=== PATIENT | male | born 1990 ===

== ENCOUNTER 2022-01-15 11:57 | Observation (INO) ==
[2022-01-15] MEDS ORDERED: GADOBENATE DIMEGLUMINE 15 ML/VIAL IV ONE (11:58)
[2022-01-15] MEDS ORDERED: 0.9 % SODIUM CHLORIDE 1,000 ML IV ONE ×2 (12:19→21:35)
[2022-01-15] MEDS ORDERED: KETOROLAC 30 MG/ML VIAL IV ONE (12:23)
--- NOTE | 2022-01-15 12:43 | Emergency Department Note ---
HPI <Dionna Jeffers PA-C - Last Filed: 01/16/22 12:04> General Chief complaint: Back Pain/Injury Stated complaint: back pain Time Seen by Provider: 01/15/22 12:10 Source: patient Mode of arrival: ambulatory History of Present Illness HPI Narrative: 31-year-old male presents with 2 days of acute onset low back pain. He can recall no injury, no recent procedures. 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 He states that he started having a deep ache without paresthesias or radiculopathy several days ago in the low spine that radiates to both sides. He had associated chills and he endorses feeling ill, but no cough or sinus congestion, no abdominal pain, nausea or vomiting. He p resents with a temperature of 100.9 Fahrenheit today. He does snort methamphetamine, last use was a week ago. Denies IV drug use. Having some urinary hesitation and incomplete emptying, but no dysuria or hematuria. Having normal bowel movements, last one was this morning. No melena or hematochezia. He does note that his mother and maternal grandmother have a history of autoimmune disease, and he thinks it is rheumatoid arthritis. Wonders if he may have something similar. Related Data Previous Rx's Medication Instructions Recorded hydrocodone 5 mg-acetaminophen 325 1 tab PO Q6H PRN #20 tab 01/16/22 mg tablet ibuprofen 200 mg tablet 400 mg PO Q8H #30 tab 01/16/22 methocarbamol 750 mg tablet 750 mg PO Q8H PRN #20 tab 01/16/22 Allergies Allergy/AdvReac Type Severity Reaction Status Date / Time No Known Drug Allergies Allergy Unverified 01/15/22 11:59 Review of Systems <Dionna Jeffers PA-C - Last Filed: 01/16/22 12:04> ROS ROS Narrative: Narrative: All systems ED: reviewed and negative except as stated. PFSH <Dionna Jeffers PA-C - Last Filed: 01/16/22 12:04> Narrative Patient History Narrative: Narrative: Medical/Surgical/Family History All Active Problems (Updated 01/15/22 @ 21:12 by Dionna Jeffers PA-C) Acute lumbar back pain (Acute) Thoracic back pain (Acute) Social History Smoking Status: Never smoker Exam <Dionna Jeffers PA-C - Last Filed: 01/16/22 12:04> Narrative Narrative: General: AOx3, NAD, nontoxic appearing. Pleasant and conversant. HEENT: PERRL, EOMI, normocephalic. Moist mucous membranes. Normal facies. Neck: No meningismus. Cervical neck is nontender to palpation Chest: Symmetric Respiratory: Lungs clear to auscultation bilaterally. No respiratory distress. Unlabored breathing. Heart: Tachycardic rate and rhythm, no murmurs/clicks/rubs. Abdomen: Non-tender, Non distended, normal bowel tones. No organomegaly. Back: Midline tenderness extending from T10-S1, most significant at L4-L5. No fluctuance or evidence of abscess or cellulitis. No breaks in the skin. Extremities: Warm and well perfused. No edema. DP 2+ bilaterally. No venous stasis. Neuro: No focal deficits. Cranial nerves II-XII grossly normal. Moves all four s against gravity 5/5. Sensate throughout the bilateral upper and lower extremities. Skin: Warm dry, no rashes or lesions, no cyanosis. Psych: Normal mood and affect Heme/Lymph: No abnormal bruising Course <Dionna Jeffers PA-C - Last Filed: 01/16/22 12:04> Course Course Narrative: 31-year-old male presents with acute onset back pain, fever, tachycardia with no known injury. Reevaluation(s) Reevaluation #1: Obtain sepsis work-up Start IV fluids 30 mL/kg IV Toradol CT of the abdomen pelvis without contrast to query for kidney stones, spinal abscess Reevaluation #2: CT is negative for acute intra-abdominal pathology, negative for kidney stones, negative for spinal abscess CRP is elevated at 1.2, white blood cell count is 14,000, UA is negative Given patient's laboratory findings, ongoing tachycardia and pain I have ordered an MRI of the thoracic and lumbar spine to rule out spinal abscess, or other Reevaluation #3: MRI of the thoracic and lumbar spine is negative for spinal abscess, osteomy elitis, or discitis. It does show 30 x 2.5 cm syrinx in the mid thoracic cord extending from T5-T6 to mid T7. A smaller 20 x 2 mm syrinx is seen in the T4 level. No cause identified for syrinx. Additional Reevaluation(s): Lumbar puncture has been performed by Dr. Mayer. Please see his note for further details and plan of care. CSF studies are pending. He was noted to have 14 cc of clear CSF. Consultations Consultation #1: Neurosurgery, Dr. Shankar reviewed the images with me and feels that the syrinxes are unlikely to cause the patient's current symptoms. He agrees that lumbar puncture may be warranted given the patient's leukocytosis, presenting fever, and no clear source of infection. Vital Signs Vital signs: Vital Signs Temperature 38.3 C H 01/15/22 11:59 Pulse Rate 127 H 01/15/22 11:59 Respiratory Rate 18 01/15/22 11:59 Blood Pressure 132/85 01/15/22 11:59 Pulse Oximetry (%) 99 01/15/22 11:59 Temperature 36.9 C 01/16/22 19:25 Pulse Rate 99 H 01/16/22 19:25 Respiratory Rate 16 01/16/22 19:25 Blood Pressure 132/86 01/16/22 19:25 Pulse Oximetry (%) 100 01/16/22 19:25 [facility] <Dionna Jeffers PA-C - Last Filed: 01/16/22 12:04> [facility] Narrative Medical decision making narrative: Acute onset low back pain Leukocytosis Elevated CRP DDx: Discitis, spinal abscess, osteomyelitis, meningitis, musculoskeletal back strain, transverse myelitis, other Patient had a thorough work-up for spinal infection with a negative MRI of the thoracolumbar spine, negative CT of the abdomen pelvis without contrast, and negative UA. In addition, the patient had a lumbar puncture and CSF fluid analysis that was clear and showed only 1 RBC and 1 WBC and could not be run for fluid differential, and glucose and CSF protein were within normal limits making meningitis unlikely. Patient has blood cultures pending. I found no infectious reason for this patient's low back pain. I have given additional pain medications and he still remains tachycardic with low-grade temp of 100.7 and uncontrolled pain. I'm awaiting a call from the hospitalist to discuss possible admission observation for intractable pain and ongoing tachycardia and fever. I signed patient out to Dr. Joseluis Whalen at change of shift. Please see his note for further details and plan of care. Lab Data Result diagrams: 01/16/22 05:11 01/16/22 05:11 Labs: Lab Results 01/15/22 01/15/22 01/15/22 Range/Units 12:28 12:28 12:30 WBC 14.0 H (4.5-11.0) K/mcL RBC 5.14 (4.63-6.08) M/mcL Hgb 14.7 (13.7-17.5) g/dL Hct 43.9 (40.1-51.0) % POC Hct 44 (41-55) % MCV 85.4 (80.0-100.0) fL MCH 28.6 (26.0-34.0) pg MCHC 33.5 (31.0-36.0) g/dL RDW 12.6 (11.5-14.5) % Plt Count 273 (140-440) K/mcL MPV 9.0 (7.4-10.4) fL Seg Neutrophils % 76 (38-78) % Band Neutrophils % (0-10) % Lymphocytes % 13 L (15-49) % Monocytes % (Manual) 8 (1-12) % Eosinophils % (Manual) 1 (0-7) % Reactive Lymphocytes 2 (0-2) % Platelet Estimate Normal (Normal) RBC Morphology Normal (Normal) ESR 10 (0-15) mm/hr VBG Lactic Acid (0.5-2.0) mmol/L POC Sodium 137 (133-145) mEq/L POC Potassium 3.5 (3.3-5.1) mEql/L POC Chloride 96 (96-108) mEq/L POC Total CO2 28 (22-30) mmol/L POC BUN 10 (6-20) mg/dL POC Creatinine 0.7 (0.6-1.2) mg/dL POC Glucose 99 (70-105) mg/dL POC WB Ioniz Calcium 1.24 (1.16-1.32) mmEq/L C-Reactive Protein 1.20 H (0.03-0.80) mg/dL Procalcitonin 0.10 H (<0.10) ng/mL Urine Color Urine Appearance (Clear) Urine pH (5.0-9.0) Ur Specific [place] (1.000-1.035) Urine Protein (Negative) mg/dL Urine Glucose (UA) (Negative) mg/dL Urine Ketones (Negative) mg/dL Urine Occult Blood (Negative) mg/dL Urine Nitrate (Negative) Urine Bilirubin (Negative) mg/dL Urine Urobilinogen mg/dL Ur Leukocyte Esterase (Negative) /uL Ur Culture Indicated? CSF Source CSF Appearance CSF Color CSF RBC (0-1) /cumm CSF Diff Total Count CSF Total Nucleated Auto (0-5) /cumm CSF Neutrophils CSF Lymphocytes CSF Reactive Lymphs CSF Monocytes CSF Eosinophils % CSF Basophils CSF Plasma Cells CSF Diff Comment CSF Glucose (40-70) mg/dL CSF Total Protein (15.0-45.0) mg/dL Urine Opiates Screen Ur Opiates Confirm Ur Oxycodone Screen Urine Methadone Screen Ur Methadone Confirm Ur Barbiturates Screen Ur Barbiturate Confirm Ur Phencyclidine Scrn Urine PCP Confirm Ur Amphetamines Screen U Benzodiazepines Scrn Urine Cocaine Screen Urine Cocaine Confirm U Cannabinoids Confirm U Marijuana (THC) Screen 01/15/22 01/15/22 01/15/22 Range/Units 12:35 12:36 12:47 WBC (4.5-11.0) K/mcL RBC (4.63-6.08) M/mcL Hgb (13.7-17.5) g/dL Hct (40.1-51.0) % POC Hct (41-55) % MCV (80.0-100.0) fL MCH (26.0-34.0) pg MCHC (31.0-36.0) g/dL RDW (11.5-14.5) % Plt Count (140-440) K/mcL MPV (7.4-10.4) fL Seg Neutrophils % (38-78) % Band Neutrophils % (0-10) % Lymphocytes % (15-49) % Monocytes % (Manual) (1-12) % Eosinophils % (Manual) (0-7) % Reactive Lymphocytes (0-2) % Platelet Estimate (Normal) RBC Morphology (Normal) ESR (0-15) mm/hr VBG Lactic Acid 1.6 (0.5-2.0) mmol/L POC Sodium (133-145) mEq/L POC Potassium (3.3-5.1) mEql/L POC Chloride (96-108) mEq/L POC Total CO2 (22-30) mmol/L POC BUN (6-20) mg/dL POC Creatinine (0.6-1.2) mg/dL POC Glucose (70-105) mg/dL POC WB Ioniz Calcium (1.16-1.32) mmEq/L C-Reactive Protein (0.03-0.80) mg/dL Procalcitonin (<0.10) ng/mL Urine Color Yellow Urine Appearance Hazy A (Clear) Urine pH 6.0 (5.0-9.0) Ur Specific [place] 1.019 (1.000-1.035) Urine Protein Negative (Negative) mg/dL Urine Glucose (UA) Negative (Negative) mg/dL Urine Ketones Negative (Negative) mg/dL Urine Occult Blood Negative (Negative) mg/dL Urine Nitrate Negative (Negative) Urine Bilirubin Negative (Negative) mg/dL Urine Urobilinogen Negative mg/dL Ur Leukocyte Esterase Negative (Negative) /uL Ur Culture Indicated? No CSF Source CSF Appearance CSF Color CSF RBC (0-1) /cumm CSF Diff Total Count CSF Total Nucleated Auto (0-5) /cumm CSF Neutrophils CSF Lymphocytes CSF Reactive Lymphs CSF Monocytes CSF Eosinophils % CSF Basophils CSF Plasma Cells CSF Diff Comment CSF Glucose (40-70) mg/dL CSF Total Protein (15.0-45.0) mg/dL Urine Opiates Screen None detected Ur Opiates Confirm TNP Ur Oxycodone Screen None detected Urine Methadone Screen None detected Ur Methadone Confirm TNP Ur Barbiturates Screen None detected Ur Barbiturate Confirm TNP Ur Phencyclidine Scrn None detected Urine PCP Confirm TNP Ur Amphetamines Screen Suspect positive A U Benzodiazepines Scrn TNP Urine Cocaine Screen None detected Urine Cocaine Confirm TNP U Cannabinoids Confirm TNP U Marijuana (THC) Screen None detected 01/15/22 01/15/22 Range/Units 17:56 23:24 WBC (4.5-11.0) K/mcL RBC (4.63-6.08) M/mcL Hgb (13.7-17.5) g/dL Hct (40.1-51.0) % POC Hct (41-55) % MCV (80.0-100.0) fL MCH (26.0-34.0) pg MCHC (31.0-36.0) g/dL RDW (11.5-14.5) % Plt Count (140-440) K/mcL MPV (7.4-10.4) fL Seg Neutrophils % 74 (38-78) % Band Neutrophils % 8 (0-10) % Lymphocytes % 7 L (15-49) % Monocytes % (Manual) 10 (1-12) % Eosinophils % (Manual) 1 (0-7) % Reactive Lymphocytes (0-2) % Platelet Estimate Normal (Normal) RBC Morphology Normal (Normal) ESR (0-15) mm/hr VBG Lactic Acid (0.5-2.0) mmol/L POC Sodium (133-145) mEq/L POC Potassium (3.3-5.1) mEql/L POC Chloride (96-108) mEq/L POC Total CO2 (22-30) mmol/L POC BUN (6-20) mg/dL POC Creatinine (0.6-1.2) mg/dL POC Glucose (70-105) mg/dL POC WB Ioniz Calcium (1.16-1.32) mmEq/L C-Reactive Protein (0.03-0.80) mg/dL Procalcitonin (<0.10) ng/mL Urine Color Urine Appearance (Clear) Urine pH (5.0-9.0) Ur Specific [place] (1.000-1.035) Urine Protein (Negative) mg/dL Urine Glucose (UA) (Negative) mg/dL Urine Ketones (Negative) mg/dL Urine Occult Blood (Negative) mg/dL Urine Nitrate (Negative) Urine Bilirubin (Negative) mg/dL Urine Urobilinogen mg/dL Ur Leukocyte Esterase (Negative) /uL Ur Culture Indicated? CSF Source Tube 3 CSF Appearance Clear CSF Color Colorless CSF RBC 1 (0-1) /cumm CSF Diff Total Count TNP CSF Total Nucleated Auto 1 (0-5) /cumm CSF Neutrophils TNP CSF Lymphocytes TNP CSF Reactive Lymphs TNP CSF Monocytes TNP CSF Eosinophils % TNP CSF Basophils TNP CSF Plasma Cells TNP CSF Diff Comment TNP CSF Glucose 65 (40-70) mg/dL CSF Total Protein 23.0 (15.0-45.0) mg/dL Urine Opiates Screen Ur Opiates Confirm Ur Oxycodone Screen Urine Methadone Screen Ur Methadone Confirm Ur Barbiturates Screen Ur Barbiturate Confirm Ur Phencyclidine Scrn Urine PCP Confirm Ur Amphetamines Screen U Benzodiazepines Scrn Urine Cocaine Screen Urine Cocaine Confirm U Cannabinoids Confirm U Marijuana (THC) Screen ED POC Tests ED POC Tests: [facility] - Influenza A Negative [facility] - Influenza B Negative [facility] - SARS Antigen Negative Discharge Plan Patient/Caregiver Discharge Instructions Pt seen by [facility]/PA only: Yes Clinical Impression: Acute lumbar back pain, Thoracic back pain Activity: increase activity as tolerated Patient Disposition: Xfer As Outpt/Obs ([facility]) Condition: Fair Discharge Date/Time: 01/16/22 00:49 Discharge Comment: [id number] on WW
[2022-01-15 12:48] LABS: POC Blood Urea Nitrogen 10 mg/dL (6-20); POC CO2 28 mmol/L (22-30); POC Calcium, Ionized 1.24 mmEq/L (1.16-1.32); POC Chloride 96 mEq/L (96-108); POC Creatinine 0.7 mg/dL (0.6-1.2); POC Glucose, Random 99 mg/dL (70-105); POC Hematocrit 44 % (41-55); POC Potassium 3.5 mEql/L (3.3-5.1); POC Sodium 137 mEq/L (133-145)
[2022-01-15 13:09] LABS: Hematocrit 43.9 % (40.1-51.0); Hemoglobin 14.7 g/dL (13.7-17.5); Mean Cell Volume 85.4 fL (80.0-100.0); Mean Corpuscular HGB Conc 33.5 g/dL (31.0-36.0); Platelet Count 273 K/mcL (140-440); RBC 5.14 M/mcL (4.63-6.08); Red Cell Distribution Width 12.6 % (11.5-14.5)
--- NOTE | 2022-01-15 13:12 | Cat Scan Report ---
CLINICAL INFORMATION: Flank pain COMPARISON: None. TECHNIQUE: 0.625 mm helical slices were obtained from the mid heart through the subtrochanteric regions. Following reconstruction, 2.5 mm sagittal, coronal and axial reformatted images were processed and reviewed at bone and soft tissue windows.The exam was performed using radiation dose optimization techniques including, but not limited to, automated exposure control, adjustment of the mA and/or kV according to patient size and use of iterative reconstruction technique. FINDINGS: The lung bases are clear. No effusions. The visualized heart is grossly normal. Abdominal images show the noncontrasted gallbladder and bile ducts, liver, both kidneys, adrenal glands, pancreas and aorta are normal in size, configuration and attenuation without focal lesion. A few small calcified splenic granulomas appreciated. There is no free air, free fluid or adenopathy. Pelvic images show normal noncontrasted urinary bladder, prostate and seminal vesicles. The stomach, small bowel, appendix and large bowel are grossly normal. Bone windows show no osseous abnormality. IMPRESSION: Few small calcified splenic granulomas. Interpreted and Authenticated by: Venu Marshall 01/15/22
[2022-01-15 13:24] LABS: Amphetamine Screen,Urine Suspect positive; Barbiturate Screen,Urine None detected; Benzodiazepines Screen,Urine None detected; Cannabinoid Screen,Urine None detected; Cocaine Screen,Urine None detected; Opiate Screen,Urine None detected; Oxycodone, Urine Screen None detected; Phencyclidine Screen,Urine None detected
[2022-01-15 14:01] LABS: Appearance,Urine HAZY (Clear); Bilirubin,Urine Negative (Negative); Color,Urine YELLOW; Culture Indicated,Urine No; Glucose,Urine (UA) Negative (Negative); Ketones,Urine Negative (Negative); Leukocyte Esterase,Urine Negative /uL (Negative); Nitrate,Urine Negative (Negative); Protein,Urine Negative (Negative); Specific Gravity,Urine 1.019 (1.000-1.035); Urine Blood Negative (Negative); Urobilinogen,Urine Negative
[2022-01-15 14:17] LABS: Erythrocyte Sedimentation Rate 10 mm/hr (0-15)
[2022-01-15 15:03] LABS: Eosinophils % (Manual) 1 % (0-7); Lymphocytes % 13 % (15-49); Monocytes % (Manual) 8 % (1-12); Platelet Estimate NORMAL (Normal); RBC Morphology NORMAL (Normal); Reactive Lymphocytes 2 % (0-2); Segmented Neutrophils % 76 % (38-78)
[2022-01-15] MEDS ORDERED: HYDROCODONE/APAP 7.5/325MG TABLET PO ONE (16:22)
--- NOTE | 2022-01-15 16:30 | Magnetic Resonance Report ---
CLINICAL INFORMATION: Back pain with elevated sedimentation rate and C-reactive protein. Evaluate for infection. COMPARISON: None. TECHNIQUE: Sagittal T1 FLAIR, T1 FLAIR post-Magnevist STIR, fast spin echo T2, axial T2 axial T1 FLAIR post Magnevist weighted images were acquired of the thoracic spine. FINDINGS: The thoracic spine is anatomically aligned and marrow signal is normal. There is a 30 x 2.5 mm syrinx in the mid thoracic cord extending from T5-6 through mid T7. A second smaller syrinx approximately 20 x 2 mm is seen at the T4 level. The remaining thoracic cord is normal. At T6-7, a moderate far right lateral disc protrusion results in mild right IV foraminal narrowing, but no definite root impingement. The other disc levels are normal. The central canal and remaining IV foramen are normal in width. No soft tissue abnormality. IMPRESSION: 1. No evidence of infection. 2. 30 x 2.5 cm syrinx in the mid thoracic cord extending from T5-T6 to mid T7. A smaller 20 x 2 mm syrinx is seen in the T4 level. No cause identified for syrinx. 3. T6-7: Moderate far right lateral disc protrusion resulting in mild right IV foraminal narrowing but no definite root impingement Interpreted and Authenticated by: Venu Marshall 01/15/22
[2022-01-15] MEDS ORDERED: LORazepam 1 MG TABLET SL ONE (18:11)
[2022-01-15] MEDS ORDERED: LORazepam 2 MG/ML VIAL IV ONE (18:22)
[2022-01-15] MEDS ORDERED: LORazepam 2 MG/ML VIAL ONE (18:26)
[2022-01-15 20:27] LABS: Glucose,CSF 65 mg/dL (40-70)
[2022-01-15 20:44] LABS: Appearance,CSF Clear; Nucleated Cells,CSF 1 /cumm (0-5); Red Blood Cell,CSF 1 /cumm (0-1)
[2022-01-15] MEDS ORDERED: HYDROmorphone 1 MG/ML SYRINGE IV ONE (21:04)
[2022-01-15] MEDS ORDERED: ACETAMINOPHEN 325 MG TABLET PO ONE (21:20)
[2022-01-15] MEDS ORDERED: METHOCARBAMOL 1,000 MG/10 ML VIAL IV ONE (21:59)
[2022-01-15] MEDS ORDERED: METHOCARBAMOL 1,000 MG/10 ML VIAL ONE (22:34)
--- NOTE | 2022-01-15 22:51 | Internal Med History&Physical ---
HPI History of Present Illness Patient information: Note initiated : 01/15/22 at 10:46 pm Service Date, if different from initiated Date: [] Patient: Deep Crawford a 31 y/o M admitted on for back pain. Chief Complaint: [] History of present illness: Mr. Crawford is a 31 year old M Presents the ED with intractable back pain. Patient states that 2 to 3 days ago he developed a flulike illness with feeling weak and fatigued and having some fevers and chills. He thought it was a viral illness he might of picked up from his children. But the next morning he woke up feeling stiff and back pain. 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 Does get a stiff back when he is in a resting position. Over the past couple days his back pain is always been constant nothing particular makes it better or worse other than the fact that it does become more stiff when he is sleeping and resting. But even when he is up moving around it still is can be severe. No particular aggravating activities. Seems to be most tender along the spine with some tenderness during this in the paraspinal musculature as well. He denies any radicular symptoms, no paresthesias numbness tingling. The pain just stays in the low back. Denies significant thoracic pain or neck pain out of the normal. No bowel or bladder incontinence. No perianal paresthesia. Patient was noted to have a mildly elevated white blood cell count of 14 and a fever of 100.7. Tachycardia. Says he does snort methamphetamine and was positive for meth on his UDS., Denies IV drug use. ESR was unremarkable and CRP was mildly elevated at 1.2. Thoracic and lumbar MRI with and without contrast showed no evidence of fracture or for infection/abscess. There was a T6-7 disc protrusion resulting in mild foraminal narrowing. Lumbar region was unremarkable except for a minimal annular bulge at L3 and 4 4 and 5. Case was discussed with Dr. Perdomo, neurosurgeon who did not have any other recs other than LP. Lumbar puncture was done the fluid was unimpressive, clear no RBCs nucleated cells normal glucose and protein. No organisms on Gram stain. Patient continued to have intractable back pain. Given the severity of pain and the mild fever with tachycardia and leukocytosis although this could be reactive from pain however will follow-up blood culture and check manual differential Patient does also admit to upper extremity paresthesias bilaterally when arms are resting on something like chair or car arm rest. Review of Systems: Positives as above. Denies headache/nausea/vomiting/chest or abdominal pain/cough/dyspnea/diarrhea. Remaining 10 point review of system reviewed negative PFSH PFSH All Active Problems (Updated 01/15/22 @ 21:12 by Dionna Jeffers PA-C) Acute lumbar back pain (Acute) Thoracic back pain (Acute) MEDS/ALLERGIES Home Medications and Allergies Home Medications Medication Instructions Recorded Confirmed Type hydrocodone 5 mg-acetaminophen 325 1 tab PO Q6H PRN #10 tab 01/15/22 Rx mg tablet methocarbamol 750 mg tablet 750 mg PO Q8H PRN #20 tab 01/15/22 Rx Allergies Allergy/AdvReac Type Severity Reaction Status Date / Time No Known Drug Allergies Allergy Unverified 01/15/22 11:59 EXAM Constitutional Vitals: Temp Pulse Resp BP Pulse Ox 100.7 F H 119 H 18 133/89 99 01/15/22 21:26 01/15/22 21:30 01/15/22 11:59 01/15/22 21:30 01/15/22 21:30 Exam: General: Alert, Awake, No acute Distress Eyes/N/T: EOMI, PERRL, Head/Neck: neck supple, normocephalic atraumatic CV: RRR, No murmurs, normal s1/s2 Pulm: Clear b/l, no wheezing/rhonchi/rales Abd: soft, nontender, +BS x4 Ext: no clubbing/cyanosis/edema Neuro: Alert, no focal deficits, moves all extremities, CN 2-12 grossly intact, symmetrical strength b/l upper/lower, sensations intact b/l upper/lower, no nuchal rigidity. Back: Tenderness to palpation along the lumbar spinous process, mild tenderness along the paraspinal musculature Skin: warm/dry DATA Data Completed and Pending Labs: Labs from last 24 hours 01/15/22 01/15/22 01/15/22 17:59 17:56 12:47 WBC RBC Hgb Hct POC Hct MCV MCH MCHC RDW Plt Count MPV Seg Neutrophils % Lymphocytes % Monocytes % (Manual) Eosinophils % (Manual) Reactive Lymphocytes Platelet Estimate RBC Morphology ESR VBG Lactic Acid POC Sodium POC Potassium POC Chloride POC Total CO2 POC BUN POC Creatinine POC Glucose POC WB Ioniz Calcium C-Reactive Protein Urine Color Yellow Urine Appearance Hazy A Urine pH 6.0 Ur Specific [place] 1.019 Urine Protein Negative Urine Glucose (UA) Negative Urine Ketones Negative Urine Occult Blood Negative Urine Nitrate Negative Urine Bilirubin Negative Urine Urobilinogen Negative Ur Leukocyte Esterase Negative Ur Culture Indicated? No CSF Source Tube 3 CSF Appearance Clear CSF Color Colorless CSF RBC 1 CSF Diff Total Count TNP CSF Total Nucleated Auto 1 CSF Neutrophils TNP CSF Lymphocytes TNP CSF Reactive Lymphs TNP CSF Monocytes TNP CSF Eosinophils % TNP CSF Basophils TNP CSF Plasma Cells TNP CSF Diff Comment TNP CSF Glucose 65 CSF Total Protein 23.0 Urine Opiates Screen Ur Opiates Confirm Ur Oxycodone Screen Urine Methadone Screen Ur Methadone Confirm Ur Barbiturates Screen Ur Barbiturate Confirm Ur Phencyclidine Scrn Urine PCP Confirm Ur Amphetamines Screen U Amphetamines Confirm U Benzodiazepines Scrn Urine Cocaine Screen Urine Cocaine Confirm U Cannabinoids Confirm U Marijuana (THC) Screen Herpes Simplex Source Pending HSV I DNA PCR Pending HSV II DNA PCR Pending 01/15/22 01/15/22 01/15/22 12:36 12:35 12:30 WBC 14.0 H RBC 5.14 Hgb 14.7 Hct 43.9 POC Hct MCV 85.4 MCH 28.6 MCHC 33.5 RDW 12.6 Plt Count 273 MPV 9.0 Seg Neutrophils % 76 Lymphocytes % 13 L Monocytes % (Manual) 8 Eosinophils % (Manual) 1 Reactive Lymphocytes 2 Platelet Estimate Normal RBC Morphology Normal ESR 10 VBG Lactic Acid 1.6 POC Sodium POC Potassium POC Chloride POC Total CO2 POC BUN POC Creatinine POC Glucose POC WB Ioniz Calcium C-Reactive Protein Urine Color Urine Appearance Urine pH Ur Specific [place] Urine Protein Urine Glucose (UA) Urine Ketones Urine Occult Blood Urine Nitrate Urine Bilirubin Urine Urobilinogen Ur Leukocyte Esterase Ur Culture Indicated? CSF Source CSF Appearance CSF Color CSF RBC CSF Diff Total Count CSF Total Nucleated Auto CSF Neutrophils CSF Lymphocytes CSF Reactive Lymphs CSF Monocytes CSF Eosinophils % CSF Basophils CSF Plasma Cells CSF Diff Comment CSF Glucose CSF Total Protein Urine Opiates Screen None detected Ur Opiates Confirm TNP Ur Oxycodone Screen None detected Urine Methadone Screen None detected Ur Methadone Confirm TNP Ur Barbiturates Screen None detected Ur Barbiturate Confirm TNP Ur Phencyclidine Scrn None detected Urine PCP Confirm TNP Ur Amphetamines Screen Suspect positive A U Amphetamines Confirm Pending U Benzodiazepines Scrn TNP Urine Cocaine Screen None detected Urine Cocaine Confirm TNP U Cannabinoids Confirm TNP U Marijuana (THC) Screen None detected Herpes Simplex Source HSV I DNA PCR HSV II DNA PCR 01/15/22 12:28 WBC RBC Hgb Hct POC Hct 44 MCV MCH MCHC RDW Plt Count MPV Seg Neutrophils % Lymphocytes % Monocytes % (Manual) Eosinophils % (Manual) Reactive Lymphocytes Platelet Estimate RBC Morphology ESR VBG Lactic Acid POC Sodium 137 POC Potassium 3.5 POC Chloride 96 POC Total CO2 28 POC BUN 10 POC Creatinine 0.7 POC Glucose 99 POC WB Ioniz Calcium 1.24 C-Reactive Protein 1.20 H Urine Color Urine Appearance Urine pH Ur Specific [place] Urine Protein Urine Glucose (UA) Urine Ketones Urine Occult Blood Urine Nitrate Urine Bilirubin Urine Urobilinogen Ur Leukocyte Esterase Ur Culture Indicated? CSF Source CSF Appearance CSF Color CSF RBC CSF Diff Total Count CSF Total Nucleated Auto CSF Neutrophils CSF Lymphocytes CSF Reactive Lymphs CSF Monocytes CSF Eosinophils % CSF Basophils CSF Plasma Cells CSF Diff Comment CSF Glucose CSF Total Protein Urine Opiates Screen Ur Opiates Confirm Ur Oxycodone Screen Urine Methadone Screen Ur Methadone Confirm Ur Barbiturates Screen Ur Barbiturate Confirm Ur Phencyclidine Scrn Urine PCP Confirm Ur Amphetamines Screen U Amphetamines Confirm U Benzodiazepines Scrn Urine Cocaine Screen Urine Cocaine Confirm U Cannabinoids Confirm U Marijuana (THC) Screen Herpes Simplex Source HSV I DNA PCR HSV II DNA PCR A/P Narrative A/P Narrative: A: *Intractable back pain: Etiology undetermined -ddx includes MSK vs nonradiographic axial spondyloarthritis vs other -MRI/LP unrevealing, ESR low, CRP mildly elevated nonspecific *SIRS: reactive from pain vs ?infectious -leukocytosis, mild fever, tachycardia *Viral prodrome: *Methamphetamine use: inhales, denies IV * P: -narocotics prn, robaxin, heat, tylenol -MRI of SI joints and cervical given UE parasthesias -monitor fever, leukocytosis, vitals -r/o infection, hold any antibiotics for now -f/u BC's -check man diff and PCT - -ppx: lovenox Time Spent With Patient Time: Total time spent is greater than 50% in coordination of care (as documented) at patient's floor/unit and/or counseling patient: Total time spent with greater than 50% in coordination of care (as documented) at patient's floor/unit and/or counseling patient:: Greater than 70 minutes
[2022-01-16] MEDS ORDERED: ONDANSETRON 4 MG/2 ML VIAL IV PRN (00:59)
[2022-01-16] MEDS ORDERED: oxyCODONE/APAP 5/325MG TABLET PO PRN (00:59)
[2022-01-16] MEDS ORDERED: POLYETHYLENE GLYCOL 3350 17 GM PACKET PO PRN (00:59)
[2022-01-16] MEDS ORDERED: PROMETHAZINE 25 MG/ML VIAL IV PRN (00:59)
[2022-01-16] MEDS ORDERED: SENNOSIDES 1 TABLET PO PRN (00:59)
[2022-01-16] MEDS ORDERED: POTASSIUM CHLORIDE 20 MEQ TABLET PO PRN ×2 (00:59)
[2022-01-16] MEDS ORDERED: POTASSIUM CHLORIDE 40 MEQ in DEXTROSE 5% IN WATER 500 ML IV PRN (00:59)
[2022-01-16] MEDS ORDERED: MAGNESIUM SULFATE 2 GM/50 ML BAG IV PRN (00:59)
[2022-01-16] MEDS ORDERED: KETOROLAC 30 MG/ML VIAL IV PRN (00:59)
[2022-01-16] MEDS ORDERED: HYDROmorphone 0.5 MG/0.5 ML SYRINGE IV PRN (00:59)
[2022-01-16] MEDS ORDERED: oxyCODONE/APAP 5/325MG TABLET PO ONE (01:43)
[2022-01-16 01:48] LABS: Band Neutrophils % 8 % (0-10); Eosinophils % (Manual) 1 % (0-7); Lymphocytes % 7 % (15-49); Monocytes % (Manual) 10 % (1-12); Platelet Estimate NORMAL (Normal); RBC Morphology NORMAL (Normal); Segmented Neutrophils % 74 % (38-78)
[2022-01-16] MEDS: LIDOCAINE PATCH TOPICAL SCH ×2 (02:23→12:29)
--- NOTE | 2022-01-16 03:07 | XRay Report ---
CLINICAL INFORMATION: Obtundation and fever. Evaluate for meningitis COMPARISON: None. TECHNIQUE: The procedure and risks including the possibility of bleeding, infection, CSF leak requiring blood patch were explained to the patient. He understood and wished to proceed. He was administered oral Ativan prior to procedure-please see emergency room notes for dosages Under fluoroscopic guidance, the L2-3 intralaminar space was marked, prepped and locally anesthetized with 1% Lidocaine using a 25 gauge needle. A 22 gauge spinal needle was placed under fluoroscopy through the intralaminar space into the thecal sac. Approximately 14 cc of clear CSF was aspirated and sent to pathology for requested studies. There was no apparent complication. The patient tolerated procedure well. Fluoroscopy time 35 seconds IMPRESSION: Successful fluoroscopic guided lumbar puncture yielding 14 cc of clear CSF. No apparent complications. Interpreted and Authenticated by: Venu Marshall 01/16/22
[2022-01-16] MEDS: 0.9 % SODIUM CHLORIDE 10 ML SYRINGE IV SCH ×3 (04:01→21:09)
[2022-01-16] MEDS ORDERED: KETOROLAC 30 MG/ML VIAL ONE (04:01)
[2022-01-16 06:47] LABS: Hematocrit 38.4 % (40.1-51.0); Hemoglobin 12.9 g/dL (13.7-17.5); Mean Cell Volume 85.9 fL (80.0-100.0); Mean Corpuscular HGB Conc 33.6 g/dL (31.0-36.0); Mean Platelet Volume 9.1 fL (7.4-10.4); Platelet Count 253 K/mcL (140-440); RBC 4.47 M/mcL (4.63-6.08); Red Cell Distribution Width 12.9 % (11.5-14.5); WBC 14.7 K/mcL (4.5-11.0)
[2022-01-16 07:16] LABS: ALT/SGPT 23 U/L (<40); AST/SGOT 16 U/L (<40); Albumin 3.8 gm/dL (3.2-5.2); Albumin/Globulin Ratio 1.4 (1.0-2.3); Alkaline Phosphatase 62 U/L (39-117); Bilirubin,Direct < 0.2 mg/dL (0-0.3); Bilirubin,Total 0.5 mg/dL (0.1-1.0); Blood Urea Nitrogen 7 mg/dL (6-20); Calcium 8.5 mg/dL (8.6-10.4); Carbon Dioxide 24 mmol/L (22-30); Chloride 98 mmol/L (96-108); Globulin 2.7 gm/dL (2.2-3.7); Glomerular Filtration Rate 119; Glucose 108 mg/dL (70-105); Lactate Dehydrogenase 212 U/L (135-225); Phosphorous 3.5 mg/dL (2.5-4.5); Triglycerides 141 mg/dL (<150); Uric Acid 5.1 mg/dL (2.5-8.0)
--- NOTE | 2022-01-16 07:58 | Internal Med Progress Note ---
SUBJECTIVE Subjective Patient information: Note initiated : 01/16/22 at 7:49 am Service Date, if different from initiated Date: [] Patient: Deep Crawford 31 y/o M admitted on 01/16/22 for back pain. Chief Complaint: [] Interval history: History of present illness: Mr. Crawford is a 31 year old M Presents the ED with intractable back pain. Patient states that 2 to 3 days ago he developed a flulike illness with feeling weak and fatigued and having some fevers and chills. He thought it was a viral illness he might of picked up from his children. But the next morning he woke up feeling stiff and back pain. 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 Does get a stiff back when he is in a resting position. Over the past couple days his back pain is always been constant nothing particular makes it better or worse other than the fact that it does become more stiff when he is sleeping and resting. But even when he is up moving around it still is can be severe. No particular aggravating activities. Seems to be most tender along the spine with some tenderness during this in the paraspinal musculature as well. He denies any radicular symptoms, no paresthesias numbness tingling. The pain just stays in the low back. Denies significant thoracic pain or neck pain out of the normal. No bowel or bladder incontinence. No perianal paresthesia. Patient was noted to have a mildly elevated white blood cell count of 14 and a fever of 100.7. Tachycardia. Says he does snort methamphetamine and was positive for meth on his UDS., Denies IV drug use. ESR was unremarkable and CRP was mildly elevated at 1.2. Thoracic and lumbar MRI with and without contrast showed no evidence of fracture or for infection/abscess. There was a T6-7 disc protrusion resulting in mild foraminal narrowing. Lumbar region was unremarkable except for a minimal annular bulge at L3 and 4 4 and 5. Case was discussed with Dr. Perdomo, neurosurgeon who did not have any other recs other than LP. Lumbar puncture was done the fluid was unimpressive, clear no RBCs nucleated cells normal glucose and protein. No organisms on Gram stain. Patient continued to have intractable back pain. Given the severity of pain and the mild fever with tachycardia and leukocytosis although this could be reactive from pain however will follow-up blood culture and check manual differential Patient does also admit to upper extremity paresthesias bilaterally when arms are resting on something like chair or car arm rest. 4/2 Patient had mild subjective fever last night. T-max 100.3. Overall feels a little bit better with the multiply pain modality although symptoms still present. Leukocytosis slightly increased. Yesterday had no bandemia on labs. Awaiting differential today. CRP mildly increased. Procalcitonin low. Hypokalemia and hypomagnesemia we will replete still unsure of etiology and will obtain further lab work-up and discussed with infectious disease Constitutional Vitals: Vital Signs Temp Pulse Resp BP Pulse Ox 98.6 F 92 H 20 115/71 97 01/16/22 06:50 01/16/22 06:50 01/16/22 06:50 01/16/22 06:50 01/16/22 06:50 Period Temp Pulse Resp BP Sys/Flood Pulse Ox Last 24 Hr 98.6 F-100.9 F 92-127 18-20 109-135/63-97 93-100 Intake and Output 01/15/22 01/16/22 01/16/22 21:59 05:59 13:59 Intake Total 0 Output Total 650 Balance -650 Weight 89.981 kg Intake & Output: Intake & Output 01/15/22 01/16/22 01/16/22 21:59 05:59 13:59 Intake Total 0 Output Total 650 Balance -650 Weight 89.981 kg Intake: Oral 0 Output: Void Amount 650 Other: Urine Appearance Clear Urine Color Dark Yellow Exam: General: Alert, Awake, No acute Distress Eyes/N/T: EOMI, , Head/Neck: neck supple, CV: RRR, No murmurs, Pulm: Clear b/l, no wheezing/rhonchi/rales Abd: soft, nontender, +BS x4 Ext: no clubbing/cyanosis/edema Neuro: Alert, no focal deficits, moves all extremities, no nuchal rigidity. Back: Tenderness to palpation along the lumbar spinous process, mild tenderness along the paraspinal musculature Skin: warm/dry OBJ DATA Labs CBC & Chem 7: 01/16/22 05:11 01/16/22 05:11 Labs: Abnormal Lab Results 01/16/22 01/16/22 01/15/22 05:11 05:11 23:24 WBC 14.7 H RBC 4.47 L Hgb 12.9 L Hct 38.4 L Lymphocytes % 7 L Potassium 3.0 L Glucose 108 H Calcium 8.5 L Magnesium 1.4 L C-Reactive Protein 3.30 H Procalcitonin Urine Appearance Ur Amphetamines Screen 01/15/22 01/15/22 01/15/22 12:47 12:35 12:30 WBC 14.0 H RBC Hgb Hct Lymphocytes % 13 L Potassium Glucose Calcium Magnesium C-Reactive Protein Procalcitonin Urine Appearance Hazy A Ur Amphetamines Screen Suspect positive A 01/15/22 01/15/22 12:28 12:28 WBC RBC Hgb Hct Lymphocytes % Potassium Glucose Calcium Magnesium C-Reactive Protein 1.20 H Procalcitonin 0.10 H Urine Appearance Ur Amphetamines Screen Meds: Medications Docusate Sodium (Docusate Sodium 100 Mg Capsule) 100 mg PO BID JENIFER Hydromorphone HCl (Hydromorphone 0.5 Mg/0.5 Ml Syringe) 0.5 mg IV Q2HP PRN; Protocol PRN Reason: Per Pain Protocol Potassium Chloride 40 meq/ (Dextrose) 520 mls @ 130 mls/hr IV UD PRN PRN Reason: Potassium < 3 Magnesium Sulfate (Magnesium Sulfate) 2 gm in 50 mls @ 50 mls/hr IV UD PRN PRN Reason: Magnesium </= 1.6 Ketorolac Tromethamine (Ketorolac 30 Mg/Ml Vial) 30 mg IV Q6HP PRN PRN Reason: Per Pain Protocol Stop: 01/18/22 23:15 Last Admin: 01/16/22 04:01 Dose: 30 mg Documented by: Lidocaine (Lidocaine Patch) 1 patch TOPICAL DAILY@1000 JENIFER Last Admin: 01/16/22 02:23 Dose: Not Given Documented by: Methocarbamol (Methocarbamol 1,000 Mg/10 Ml Vial) 1,000 mg IV Q8HP PRN PRN Reason: Muscle Spasm Ondansetron HCl (Ondansetron 4 Mg/2 Ml Vial) 4 mg IV Q4HP PRN PRN Reason: Nausea And Vomiting Oxycodone/Acetaminophen (Oxycodone/Apap 5/325mg Tablet) 1 tab PO Q4-6HP PRN; Protocol PRN Reason: Per Pain Protocol Last Admin: 01/16/22 01:38 Dose: 1 tab Documented by: Polyethylene Glycol (Polyethylene Glycol 3350 17 Gm Packet) 17 gm PO DAILYP PRN PRN Reason: Constipation Potassium Chloride (Potassium Chloride 20 Meq Tablet) 40 meq PO UD PRN PRN Reason: Potssium is 3-3.5 Potassium Chloride (Potassium Chloride 20 Meq Tablet) 40 meq PO UD PRN PRN Reason: Potassium < 3 Promethazine HCl (Promethazine 25 Mg/Ml Vial) 12.5 mg IV Q6HP PRN PRN Reason: Nausea And Vomiting Senna (Sennosides 1 Tablet) 2 tab PO DAILYP PRN PRN Reason: Constipation Sodium Chloride (0.9 % Sodium Chloride 10 Ml Syringe) 10 ml IV Q8 JENIFER Last Admin: 01/16/22 04:01 Dose: 10 ml Documented by: A/P Narrative A/P Narrative: A: *Intractable back pain: Etiology undetermined -ddx includes MSK vs nonradiographic axial spondyloarthritis (unable to perform MRI of SI joint, no MRI available) vs other -MRI/LP unrevealing, ESR low, CRP mildly elevated *SIRS: reactive from pain vs ?infectious -leukocytosis minimally increase but no bandemia, mild fever, tachycardia -PCT low, CRP increased to 3 -Tmax o/n 100.3 *Viral prodrome: *Methamphetamine use: inhales, denies IV *Hypokalemia/hypomagnesemia:: P: -FUO w/u -discussed with [facility] infectious disease specialist who recommended echo and possibly repeating blood cultures if he spikes another temperature otherwise no further recommendations -NSAIDS, narcotics prn, robaxin, heat, tylenol -MRI of SI joints and cervical given UE parasthesias - no MRI available this we ekend -monitor fever, leukocytosis, vitals -r/o infection, hold antibiotics for now -f/u BC's -Replace electrolytes - -ppx: lovenox Time Spent With Patient Time: Total time spent is greater than 50% in coordination of care (as documented) at patient's floor/unit and/or counseling patient: Total time spent with greater than 50% in coordination of care (as documented) at patient's floor/unit and/or counseling patient:: 50 - 70 minutes QUALITY VTE Deep Vein Thrombosis/Pulmonary Embolism Present on Admission: No
[2022-01-16] MEDS: DOCUSATE SODIUM 100 MG CAPSULE PO SCH ×2 (08:41→21:10)
[2022-01-16] MEDS: METHOCARBAMOL 1,000 MG/10 ML VIAL IV PRN ×2 (08:52→19:08)
[2022-01-16 10:03] LABS: Hepatitis B Surface Antigen Negative (Negative); Hepatitis C Virus Antibody Non-Reactive (Non-Reactive)
[2022-01-16 11:29] LABS: Band Neutrophils % 3 % (0-10); Lymphocytes % 16 % (15-49); Monocytes % (Manual) 11 % (1-12); Platelet Estimate NORMAL (Normal); RBC Morphology NORMAL (Normal); Reactive Lymphocytes 3 % (0-2); Segmented Neutrophils % 67 % (38-78)
[2022-01-16] MEDS: KETOROLAC 15 MG/ML VIAL IV SCH ×2 (12:29→18:02)
--- NOTE | 2022-01-16 22:00 | Discharge Summary ---
Discharge Provider Provider Patient information: Note initiated : 01/16/22 at 9:56 pm Service Date, if different from initiated Date: [] Patient: Deep Crawford 31 y/o M admitted on 01/16/22 for back pain. Chief Complaint: [] Date of admission: 01/16/22 00:49 Discharge date: 01/16/22 Primary care physician: PCP No Consults: 01/15/22 Consult to Physician [CONS] Stat Comment: Consulting Provider: Melvin Hernandez Reason For Exam: Physician to Consult Discharge Meds Discharge Medications Home Medications hydrocodone 5 mg-acetaminophen 325 mg tablet 1 tab PO Q6H PRN #20 tab 01/16/22 [Rx Last Taken Unknown] ibuprofen 200 mg tablet 400 mg PO Q8H #30 tab 01/16/22 [Rx Last Taken Unknown] methocarbamol 750 mg tablet 750 mg PO Q8H PRN #20 tab 01/16/22 [Rx Last Taken Unknown] COURSE Hospital Course Hospital course: Interval history: History of present illness: Mr. Crawford is a 31 year old M Presents the ED with intractable back pain. Patient states that 2 to 3 days ago he developed a flulike illness with feeling weak and fatigued and having some fevers and chills. He thought it was a viral illness he might of picked up from his children. But the next morning he woke up feeling stiff and back pain. 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 Does get a stiff back when he is in a resting position. Over the past couple days his back pain is always been constant nothing particular makes it better or worse other than the fact that it does become more stiff when he is sleeping and resting. But even when he is up moving around it still is can be severe. No particular aggravating activities. Seems to be most tender along the spine with some tenderness during this in the paraspinal musculature as well. He denies any radicular symptoms, no paresthesias numbness tingling. The pain just stays in the low back. Denies significant thoracic pain or neck pain out o f the normal. No bowel or bladder incontinence. No perianal paresthesia. Patient was noted to have a mildly elevated white blood cell count of 14 and a fever of 100.7. Tachycardia. Says he does snort methamphetamine and was positive for meth on his UDS., Denies IV drug use. ESR was unremarkable and CRP was mildly elevated at 1.2. Thoracic and lumbar MRI with and without contrast showed no evidence of fracture or for infection/abscess. There was a T6-7 disc protrusion resulting in mild foraminal narrowing. Lumbar region was unremarkable except for a minimal annular bulge at L3 and 4 4 and 5. Case was discussed with Dr. Perdomo, neurosurgeon who did not have any other recs other than LP. Lumbar puncture was done the fluid was unimpressive, clear no RBCs nucleated cells normal glucose and protein. No organisms on Gram stain. Patient continued to have intractable back pain. Given the severity of pain and the mild fever with tachycardia and leukocytosis although this could be reactive from pain however will follow-up blood culture and check manual differential Patient does also admit to upper extremity paresthesias bilaterally when arms are resting on something like chair or car arm rest. 4/2 Patient had mild subjective fever last night. T-max 100.3. Overall feels a little bit better with the multiply pain modality although symptoms still present. Leukocytosis slightly increased. Yesterday had no bandemia on labs. Awaiting differential today. CRP mildly increased. Procalcitonin low. Hypokalemia and hypomagnesemia we will replete still unsure of etiology and will obtain further lab work-up and discussed with infectious disease. Echo unremarkable. Patient feeling much better today between the muscle relaxer and the NSAID. Patient has been afebrile today. Patient desiring to go home. Instructed him to follow-up closely with [facility] A: *Intractable back pain: Etiology undetermined, likely MSK -ddx includes MSK vs nonradiographic axial spondyloarthritis (unable to perform MRI of SI joint, no MRI available) vs other -MRI/LP unrevealing, ESR low, CRP mildly elevated *SIRS: reactive/inflammatory likely, no infectious source found -echo/BC unremarkable *Viral prodrome: *Methamphetamine use: inhales, denies IV *Hypokalemia/hypomagnesemia:: P: -NSAIDS, robaxin, prn norco -f/u with [facility] Discharge diagnosis: Intractable back pain likely musculoskeletal Secondary discharge diagnosis: SIRS viral prodrome methamphetamine use electrolyte imbalance Time Spent with Patient Time attestation: Total time spent providing and/or coordinating discharge services: Time spent: Greater than 30 minutes EXAM Constitutional Vitals: Temp Pulse Resp BP Pulse Ox 98.5 F 99 H 16 132/86 100 01/16/22 19:25 01/16/22 19:25 01/16/22 19:25 01/16/22 19:25 01/16/22 19:25 Discharge Data Data Completed and Pending Labs on day of discharge: Labs from last 24 hours 01/16/22 01/16/22 01/16/22 08:15 08:15 08:14 WBC RBC Hgb Hct MCV MCH MCHC RDW Plt Count MPV Seg Neutrophils % Band Neutrophils % Lymphocytes % Monocytes % (Manual) Eosinophils % (Manual) Reactive Lymphocytes Platelet Estimate RBC Morphology ESR 10 Sodium Potassium Chloride Carbon Dioxide Anion Gap BUN Creatinine GFR Calculation Glucose Uric Acid Calcium Phosphorus Magnesium Total Bilirubin Direct Bilirubin GGT AST ALT Alkaline Phosphatase Lactate Dehydrogenase C-Reactive Protein Total Protein Albumin Globulin Albumin/Globulin Ratio Triglycerides Procalcitonin Rheumatoid Factor Pending JOANA Screen Pending JOANA Titer Pending JOANA Titer and Pattern Pending SS-A Antibody Pending SS-B Antibody Pending Sm (Butt) Antibody Pending SM/COST MANAGER IgG Antibody Pending Scl-70 Antibody Pending Anti-ds DNA IgG Ab Titer Pending Anti-ds DNA (Crithidia) Pending Hepatitis A IgM Ab Non-reactive Hep Bs Antigen Negative Hep B Core IgM Ab Non-reactive Hepatitis C Antibody Non-reactive 01/16/22 01/16/22 01/16/22 08:14 05:11 05:11 WBC 14.7 H RBC 4.47 L Hgb 12.9 L Hct 38.4 L MCV 85.9 MCH 28.9 MCHC 33.6 RDW 12.9 Plt Count 253 MPV 9.1 Seg Neutrophils % 67 Band Neutrophils % 3 Lymphocytes % 16 Monocytes % (Manual) 11 Eosinophils % (Manual) Reactive Lymphocytes 3 H Platelet Estimate Normal RBC Morphology Normal ESR Sodium 134 Potassium 3.0 L Chloride 98 Carbon Dioxide 24 Anion Gap 12.0 BUN 7 Creatinine 0.8 GFR Calculation 119 Glucose 108 H Uric Acid 5.1 Calcium 8.5 L Phosphorus 3.5 Magnesium 1.4 L Total Bilirubin 0.5 Direct Bilirubin < 0.2 GGT 34 AST 16 ALT 23 Alkaline Phosphatase 62 Lactate Dehydrogenase 212 C-Reactive Protein 3.30 H Total Protein 6.5 Albumin 3.8 Globulin 2.7 Albumin/Globulin Ratio 1.4 Triglycerides 141 Procalcitonin Rheumatoid Factor 12 JOANA Screen JOANA Titer JOANA Titer and Pattern SS-A Antibody SS-B Antibody Sm (Butt) Antibody SM/COST MANAGER IgG Antibody Scl-70 Antibody Anti-ds DNA IgG Ab Titer Anti-ds DNA (Crithidia) Hepatitis A IgM Ab Hep Bs Antigen Hep B Core IgM Ab Hepatitis C Antibody 01/15/22 01/15/22 23:24 12:28 WBC RBC Hgb Hct MCV MCH MCHC RDW Plt Count MPV Seg Neutrophils % 74 Band Neutrophils % 8 Lymphocytes % 7 L Monocytes % (Manual) 10 Eosinophils % (Manual) 1 Reactive Lymphocytes Platelet Estimate Normal RBC Morphology Normal ESR Sodium Potassium Chloride Carbon Dioxide Anion Gap BUN Creatinine GFR Calculation Glucose Uric Acid Calcium Phosphorus Magnesium Total Bilirubin Direct Bilirubin GGT AST ALT Alkaline Phosphatase Lactate Dehydrogenase C-Reactive Protein Total Protein Albumin Globulin Albumin/Globulin Ratio Triglycerides Procalcitonin 0.10 H Rheumatoid Factor JOANA Screen JOANA Titer JOANA Titer and Pattern SS-A Antibody SS-B Antibody Sm (Butt) Antibody SM/COST MANAGER IgG Antibody Scl-70 Antibody Anti-ds DNA IgG Ab Titer Anti-ds DNA (Crithidia) Hepatitis A IgM Ab Hep Bs Antigen Hep B Core IgM Ab Hepatitis C Antibody Preliminary micro results at discharge 01/15/22 12:36 Blood Culture - Preliminary Blood 01/15/22 12:28 Blood Culture - Preliminary Blood Discharge Plan Patient/Caregiver Discharge Instructions Activity: increase activity as tolerated Diet: Regular Diet Activity Restrictions/Additional Instructions: Follow-up with a [facility] in 3 to 7 days or Cherie Caceres. You are seen and evaluated for acute thoracolumbar back pain. Concern was for possible spinal infection and you had an MRI of your thoracic and lumbar spines that was negative for spinal abscess, infection in the bone, or infection in the disc spaces. You were noted to have some incidental findings of syringomyelia, which are small spinal cysts that can be seen with injury to spinal discs. You had no significant compression of the nerve roots in question. You did have a elevation of your white blood cell count and an elevated inflammatory marker. These are nonspecific findings, but can indicate infection. You had a lumbar puncture to evaluate your cerebrospinal fluid for meningitis, and the fluid showed no evidence of infection. You had a negative urinalysis, and you had a negative CT of the abdomen pelvis without contrast showing no evidence of intra- abdominal infection or kidney stones. At this point I do not have a clear reason for the pain that you are experiencing; however, this may be related to a strain of the muscles or ligaments around your lumbar spine. You are being discharged home with a prescription for a muscle relaxer and a limited prescription of pain medication. You should follow-up in the ER if your pain persists or worsens. Prescriptions: New hydrocodone-acetaminophen 5-325 mg tablet 1 tab PO Q6H PRN (Reason: pain) Qty: 20 0RF ibuprofen 200 mg tablet 400 mg PO Q8H Qty: 30 0RF methocarbamol 750 mg tablet 750 mg PO Q8H PRN (Reason: back pain/spasms) Qty: 20 0RF Follow Up Plan Follow up with: Cherie Caceres, PAHillaryC [Physician Hall Cleaner-Certified] - No,PCP [Primary Care Provider] - Patient Disposition: Home, Self-Care Prognosis: Fair Overall status at discharge: patient is progressing back to baseline Discharge Orders: Discharge Order (Routine); Ordered 01/16/22 Ordered By: Melvin Hernandez [facility] Deep Vein Thrombosis/Pulmonary Embolism Present on Admission: No
[2022-01-16] MEDS ORDERED: METHOCARBAMOL (PP) 750 MG TABLET (#4) PO ONE (22:03)
[2022-01-16] MEDS ORDERED: HYDROcodone/APAP (PP) 5/325MG TABLET (#4) PO ONE ×2 (22:04→22:18)
== END 2022-01-16 22:27 | disposition home or self-care (01) ==
LOC: MEDSUR 11:57 → ED 11:57 → MEDSUR 01-16 00:49
PROVIDERS: ADMIT Internal Medicine; ATTEND Internal Medicine